=== PATIENT | female | born 1955 | race Caucasian/White ===

== ENCOUNTER 2024-02-09 19:35 | Emergency (ER) | payer OTHER ==
[2024-02-09 19:54] VITALS: BP 109/60; PULSE 87; RESP 18; TEMP 98.4; BMI 45.7
[2024-02-09 20:38] LABS: HEMATOCRIT 38.9 % (32.4-45.2); HEMOGLOBIN 12.9 G/dL (10.7-15.3); MCH 29.2 pg (25.7-33.7); MCHC 33.1 g/dl (32.0-36.0); MEAN CELL VOLUME 88.5 fl (80-96); MEAN PLT VOLUME 9.9 fl (7.5-11.1); PLATELET COUNT 223.1 10^3/uL (134-434); RDW 14.6 % (11.6-15.6); WHITE BLOOD COUNT 11.2 10^3/uL (4.0-10.8)
[2024-02-09 20:56] LABS: ALBUMIN 4.3 g/dl (3.4-5.0); BILIRUBIN,TOTAL 0.4 mg/dl (0.2-1); CALCIUM 9.8 mg/dl (8.5-10.1); CREATININE 1.1 mg/dl (0.6-1.3); POTASSIUM 4.4 mmol/L (3.5-5.1); TOT PROT 6.5 g/dl (6.4-8.2)
[2024-02-09 21:31] LABS: PLATELET ESTIMATE ADEQUATE
== END 2024-02-09 23:30 | disposition home or self-care (01) ==
LOC: FER 19:35
DX: K57.32 Diverticulitis of large intestine without perforation or abscess without bleeding (principal); R10.32 Left lower quadrant pain
CPT/HCPCS: 36415; 74177-TC; 80053; 81003; 81015; 83605; 85027; 99285-25; Q9967

== ENCOUNTER 2025-01-31 06:06 | Day surgery (SDC) | payer OTHER ==
[2025-01-31] MEDS: LIDOCAINE HCL 1% PRESERVATIVE FREE - 30ML VIAL IJ ONE ×2 (09:06)
[2025-01-31] MEDS: IOHEXOL 180 MG/1 ML ML IJ ONE ×2 (09:08)
[2025-01-31] MEDS: TRIAMCINOLONE ACET 40MG/1ML VIAL IM ONE ×2 (09:09)
[2025-01-31] MEDS: BUPIVACAINE HCL/PF 0.5% (5 MG/ML) 30 ML VIAL IJ ONE ×2 (09:09)
[2025-01-31] MEDS ORDERED: ACETAMINOPHEN 500 MG TABLET (FP) PO PRN (09:15)
[2025-01-31 09:53] VITALS: BP 123/62; PULSE 87; RESP 18; TEMP 97.2
== END 2025-01-31 09:30 | disposition home or self-care (01) ==
LOC: JASU-SURG 06:06
PROVIDERS: ATTEND Pain Medicine Pain Medicine
PROC: 3E0U3BZ Introduction of Anesthetic Agent into Joints, Percutaneous Approach (ICD-10-PCS; 2025-01-31)
PROC: 3E0U33Z Introduction of Anti-inflammatory into Joints, Percutaneous Approach (ICD-10-PCS; principal; 2025-01-31 09:00)
DX: M53.3 Sacrococcygeal disorders, not elsewhere classified (principal)
CPT/HCPCS: 76000-TC-FY